=== PATIENT | male | born 1975 | race Caucasian/White ===

== ENCOUNTER 2022-09-25 09:51 | Emergency (ER) | payer SELFPAY ==
[2022-09-25 10:24] VITALS: BP 118/80; PULSE 74; RESP 18; TEMP 98.1; BMI 23.3
[2022-09-25] MEDS ORDERED: KETOROLAC TROMETHAMINE 30 MG/1 ML VIAL IM ONE (10:40)
[2022-09-25] MEDS ORDERED: KETOROLAC TROMETHAMINE 30 MG/1 ML VIAL ONE (11:49)
== END 2022-09-25 12:50 | disposition home or self-care (01) ==
LOC: JER 09:51 → JERFT 09:51
PROC: 3E0233Z Introduction of Anti-inflammatory into Muscle, Percutaneous Approach (ICD-10-PCS; principal; 2022-09-25)
DX: M54.42 Lumbago with sciatica, left side (principal)
CPT/HCPCS: 96372; 99284-25